=== PATIENT | male | born 1980 | race American Indian/Alaskan Native ===

== ENCOUNTER 2019-09-25 18:25 | Emergency (ER) | payer OTHER ==
[2019-09-25] MEDS ORDERED: GI Cocktail Oral Solution 30 ML PO ONE (18:50)
--- NOTE | 2019-09-25 18:50 | EDM.PDOC ---
ED [facility] GENERAL MEDICAL PROBLEM - General Chief Complaint: Chest Pain Stated Complaint: CHEST PAIN Time Seen by Provider: 09/25/19 18:42 Source of Information: Reports: Patient History Limitations: Reports: No Limitations - History of Present Illness INITIAL COMMENTS - FREE TEXT/NARRATIVE: patient comes emergency department today with complaints of left anterior chest pain. Approximately 30 minutes prior to arrival the patient had sudden onset of sharp shooting stabbing pain on his left anterior chest. Pain comes and goes on its own. It gets worse with movement and deep breath or cough. He has had no cough. No shortness of breath or difficulty breathing. No fever no chills. No diaphoresis. No paresthesias. No weakness dizziness lightheadedness. Palpitations. No nausea no vomiting. No abdominal pain. No pain in his back. Later during the HPI he tells me that he has been having these pains on and off for the past few weeks to months primarily after he gets up from bed. Chest Pain Score (Numeric/FACES): 7 - Related Data Allergies Allergy/AdvReac Type Severity Reaction Status Date / Time sumatriptan [From Imitrex] Allergy Anxiety Verified 09/25/19 18:33 Home Meds: Home Meds Cholecalciferol (Vitamin D3) [Vitamin D] 1,000 unit PO DAILY 09/25/19 [History] Lisinopril [Zestril] 10 mg PO DAILY 09/25/19 [History] atorvaSTATin [Lipitor] 20 mg PO BEDTIME 09/25/19 [History] Past Medical History HEENT History: Reports: None Cardiovascular History: Reports: Hypertension Respiratory History: Reports: Sleep Apnea Other Respiratory History: has c-pap Genitourinary History: Reports: None Musculoskeletal History: Reports: Arthritis Neurological History: Reports: None Psychiatric History: Reports: None Endocrine/Metabolic History: Reports: Obesity/BMI 30+ Hematologic History: Reports: None Immunologic History: Reports: None Oncologic (Cancer) History: Reports: None Dermatologic History: Reports: None - Infectious Disease History Infectious Disease History: Reports: Chicken Pox - Past Surgical History Head Surgeries/Procedures: Reports: None GI Surgical History: Reports: Appendectomy, Cholecystectomy Social & Family History - Tobacco Use Smoking Status *Q: Former Smoker Years of Tobacco use: 10 Packs/Tins Daily: 1 Used Tobacco, but Quit: Yes Month/Year Tobacco Last Used: august Second Hand Smoke Exposure: No - Caffeine Use Caffeine Use: Reports: Soda - Recreational Drug Use Recreational Drug Use: No ED ROS GENERAL - Review of Systems Review Of Systems: Comprehensive ROS is negative, except as noted in HPI. ED EXAM, GENERAL - Physical Exam Exam: See Below Exam Limited By: No Limitations General Appearance: Alert, WD/WN, No Apparent Distress Eye Exam: Bilateral Eye: EOMI Neck: Normal Inspection, Supple, Non-Tender Respiratory/Chest: No Respiratory Distress, Lungs Clear, Normal Breath Sounds, No Accessory Muscle Use Cardiovascular: Normal Peripheral Pulses, Regular Rate, Rhythm GI/Abdominal: Normal Bowel Sounds, Soft, Non-Tender Back Exam: Normal Inspection, Full Range of Motion Extremities: Normal Inspection, Normal Range of Motion, Non-Tender, Normal Capillary Refill Neurological: Alert, Oriented, CN II-XII Intact, No Motor/Sensory Deficits Psychiatric: Normal Affect, Normal Mood Skin Exam: Warm, Dry, Intact, Normal Color EKG INTERPRETATION EKG Date: 09/25/19 Time: 18:31 Rhythm: NSR Rate (Beats/Min): 71 [place]: Normal P-Wave: Present QRS: Normal ST-T: Normal QT: Normal Comparison: NA - No Prior EKG Course - Vital Signs Last Recorded V/S: Last Vital Signs Temp 37.2 C 09/25/19 18:29 Pulse 70 09/25/19 18:29 Resp 16 09/25/19 18:29 BP 128/86 09/25/19 18:29 Pulse Ox 98 09/25/19 18:29 - Orders/Labs/Meds Orders: Active Orders 24 hr Category Date Time Status EKG 12 Lead [EKG Documentation Completion] [RC] URGENT Care 09/25/19 18:50 Active Labs: Laboratory Tests 09/25/19 09/25/19 Range/Units 18:57 18:57 WBC 8.3 (5.0-10.0) 10^3/uL RBC 5.26 (4.6-6.2) 10^6/uL Hgb 16.1 (14.0-18.0) g/dL Hct 47.5 (40.0-54.0) % MCV 90.3 (80-100) fL MCH 30.6 (27.0-34.0) pg MCHC 33.9 (33.0-35.0) g/dL Plt Count 327 D (150-450) 10^3/uL Neut % (Auto) 62.4 (42.2-75.2) % Lymph % (Auto) 25.8 (20.5-50.1) % [place] % (Auto) 8.9 H (2-8) % Eos % (Auto) 2.4 (1.0-3.0) % Baso % (Auto) 0.5 (0.0-1.0) % Sodium 135 (135-145) mmol/L Potassium 4.7 (3.6-5.0) mmol/L Chloride 103 (101-111) mmol/L Carbon Dioxide 25.0 (21.0-31.0) mmol/L Anion Gap 11.7 BUN 14 (7-18) mg/dL Creatinine 1.0 (0.6-1.3) mg/dL Est Cr Clr Drug Dosing 92.16 mL/min Estimated GFR (MDRD) > 60 BUN/Creatinine Ratio 14.00 Glucose 91 (74-105) mg/dL Calcium 9.1 (8.4-10.2) mg/dl Total Bilirubin 1.0 (0.2-1.0) mg/dL AST 19 (10-42) IU/L ALT 25 (10-60) IU/L Alkaline Phosphatase 71 (42-121) IU/L Troponin I < 0.02 (0.00-0.02) ng/ml Total Protein 7.1 (6.7-8.2) g/dl Albumin 4.3 (3.2-5.5) g/dl Globulin 2.8 Albumin/Globulin Ratio 1.54 Meds: Medications Discontinued Medications Generic Name Dose Route Start Last Admin Trade Name Freq PRN Reason Stop Dose Admin Al Hydroxide/Mg Hydroxide 30 ml 09/25/19 18:50 09/25/19 19:00 Gi Cocktail PO 09/25/19 18:51 30 ml ONETIME ONE Administration - Re-Assessments/Exams Free Text/Narrative Re-Assessment/Exam: 09/25/19 19:41 patient was given a GI cocktail he had no recurrence of his symptoms while in the emergency department. He really feels that this is more from his neck. He has been struggling with his neck for the past month and a half or so. The pain radiates from his left anterior chest up his left neck. Seen physical therapy for his back and his hips. I relate his normal EKG as well as laboratory evaluation this is really not the presentation of cardiac chest pain this more musculoskeletal or mechanical type pain. We will use symptomatic management at this time and continue with his physical therapy and focus on his neck he is comfortable with this plan and his questions are answered. Departure - Departure Time of Disposition: 19:38 Disposition: Home, Self-Care 01 Clinical Impression: Chest pain, musculoskeletal, Neck pain on left side Instructions: Nonspecific Chest Pain, [id number] Forms: ED Department Discharge Additional Instructions: Tylenol and or Ibuprofen as needed for pain. Heat or Ice which every works best for you. Continue with your physical therapy and tell them about your neck and have them help with that as well. Return to the ED if new or worsening symptoms. Follow up with PCP in the next 4-6 days if not improving sooner if worse. Sepsis Event Note - Evaluation Sepsis Screening Result: No Definite Risk - Focused Exam Vital Signs: Vital Signs Temp Pulse Resp BP Pulse Ox 09/25/19 18:29 37.2 C 70 16 128/86 98 Date Exam was Performed: 09/25/19 Time Exam was Performed: 19:37 - My Orders Last 24 Hours: My Active Orders 09/25/19 18:50 EKG 12 Lead [EKG Documentation Completion] [RC] URGENT - Assessment/Plan Last 24 Hours: My Active Orders 09/25/19 18:50 EKG 12 Lead [EKG Documentation Completion] [RC] URGENT Assessment:: Musculoskeletal chest pain. Subacute neck pain. Plan: Tylenol and or Ibuprofen as needed for pain. Heat or Ice which every works best for you. Continue with your physical therapy and tell them about your neck and have them help with that as well. Return to the ED if new or worsening symptoms. Follow up with PCP in the next 4-6 days if not improving sooner if worse.
[2019-09-25 19:23] LABS: ANION GAP 11.7; CHLORIDE,CL 103 mmol/L (101-111); SODIUM,NA 135 mmol/L (135-145)
== END 2019-09-25 19:45 | disposition home or self-care (01) ==
LOC: DL.ED 18:25
DX: R07.89 Other chest pain (principal); M54.2 Cervicalgia; I10 Essential (primary) hypertension; E66.9 Obesity, unspecified; Z88.8 Allergy status to other drugs, medicaments and biological substances; Z79.899 Other long term (current) drug therapy; Z87.891 Personal history of nicotine dependence
CPT/HCPCS: 36415; 80053; 84484; 85025; 93005; 99285; A9270

== ENCOUNTER 2022-07-04 16:31 | Emergency (ER) | payer BC, OTHER ==
[~2022-07-04 16:31] MED LIST: Metoclopramide 10 MG/2 ML SDV IVPUSH ONE; Sodium Chloride 0.9% 1,000 ML IV ONE
[2022-07-04] MEDS ORDERED: Ondansetron 4 MG Tab.DIS PO ONE (16:32)
[2022-07-04 16:55] LABS: ANION GAP 18.9 mEq/L (7-13); CHLORIDE,CL 97 mmol/L (98-107); SODIUM,NA 132 mmol/L (136-145)
[2022-07-04 16:56] LABS: ESTIMATED GFR 70 mL/min (>=60)
[2022-07-04] MEDS ORDERED: Potassium Chloride 20 MEQ in Premix Bag 1 BAG IV ONE ×2 (17:17→19:17)
[2022-07-04] MEDS ORDERED: Sodium Chloride 0.9% 1,000 ML IV ONE (17:17)
[2022-07-04] MEDS ORDERED: LORazepam 2 MG/ML SDV IVPUSH ONE ×2 (17:22→19:45)
[2022-07-04 19:03] LABS: AMPHETAMINES,URINE NEGATIVE (NEGATIVE); BARBITURATES,URINE NEGATIVE (NEGATIVE); BENZODIAZEPINE,URINE NEGATIVE (NEGATIVE); MDMA (ECSTASY), URINE NEGATIVE (NEGATIVE); METHADONE,URINE NEGATIVE (NEGATIVE); METHAMPHETAMINES,URINE NEGATIVE (NEGATIVE); OPIATES,URINE NEGATIVE (NEGATIVE); OXYCODONE,URINE NEGATIVE (NEGATIVE); PHENCYCLIDINE,URINE NEGATIVE (NEGATIVE); TCA,URINE NEGATIVE (NEGATIVE)
[2022-07-04] MEDS ORDERED: Ondansetron 4 MG Tab.DIS ONE (21:28)
== END 2022-07-04 21:25 | disposition home or self-care (01) ==
LOC: DL.ED 16:31
DX: E87.6 Hypokalemia (principal); R11.2 Nausea with vomiting, unspecified; F12.90 Cannabis use, unspecified, uncomplicated; I10 Essential (primary) hypertension; M19.90 Unspecified osteoarthritis, unspecified site; E66.9 Obesity, unspecified; Z68.42 Body mass index [BMI] 45.0-49.9, adult; Z88.8 Allergy status to other drugs, medicaments and biological substances; Z79.899 Other long term (current) drug therapy; E78.5 Hyperlipidemia, unspecified
CPT/HCPCS: 36415; 80053; 80305; 80307; 81003; 82150; 83605; 83690; 83735; 84145; 84484; 85025; 93005; 96361; 96365; 96366; 96375; 99284; A9270; J2060; J2765; J3480; J7030

== ENCOUNTER 2023-03-22 14:38 | Emergency (ER) | payer BC, OTHER ==
[2023-03-22] MEDS ORDERED: Metoclopramide 10 MG/2 ML SDV IVPUSH ONE (15:00)
[2023-03-22] MEDS ORDERED: Sodium Chloride 0.9% 1,000 ML IV ONE (15:04)
[2023-03-22 15:24] LABS: HEMATOCRIT 50.9 % (40.0-54.0); HEMOGLOBIN 17.8 g/dL (14.0-18.0); MEAN CORPUSCULAR HEMOGLOBIN 29.9 pg (27.0-34.0); MEAN CORPUSCULAR VOLUME 85.5 fL (80-100); PLATELET COUNT,PLT 421 10^3/uL (150-450); RED BLOOD CELL COUNT 5.95 10^6/uL (4.6-6.2); WHITE BLOOD CELL COUNT,WBC 19.4 10^3/uL (5.0-10.0)
[2023-03-22 15:35] LABS: A/G RATIO 1.2; ALBUMIN 4.2 g/dL (3.4-5.0); ANION GAP 17.5 mEq/L (7-13); BILIRUBIN TOTAL 0.7 mg/dL (0.2-1.0); BUN/CREATININE RATIO 7.7 (No establ ref range); CALCIUM 9.3 mg/dL (8.5-10.1); CREATININE 1.42 mg/dL (0.70-1.30); EST CRCL DRUG DOSING (CG) 64.65 mL/min; POTASSIUM,K 3.5 mmol/L (3.5-5.1); PROTEIN TOTAL,TP 7.8 g/dL (6.4-8.2)
[2023-03-22 15:57] LABS: BASOPHILS PERCENT AUTO 0.3 % (0.0-1.0); EOSINOPHILS PERCENT AUTO 1.5 % (1.0-3.0); LYMPHOCYTES PERCENT AUTO 12.1 % (20.5-50.1); NEUTROPHILS PERCENT AUTO 79.1 % (42.2-75.2)
[2023-03-22 15:59] LABS: LYMPHOCYTES % ATYPICAL MANUAL 2 %; LYMPHOCYTES PERCENT MAN 15 % (20-50); MONOCYTES PERCENT MAN 4 % (2-8); SEG NEUTROPHILS PERCENT MAN 79 % (42-75)
[2023-03-22] MEDS ORDERED: Ondansetron 4 MG/2 ML SDV IVPUSH ONE (16:26)
[2023-03-22 16:36] LABS: C-REACTIVE PROTEIN < 0.2 mg/dL (0.0-0.9); ETHANOL BLOOD MEDICAL < 3 mg/dL (0)
[2023-03-22 17:08] LABS: LACTIC ACID 2.1 mmol/L (0.4-2.0)
== END 2023-03-22 18:00 | disposition home or self-care (01) ==
LOC: DL.ED 14:38
DX: R11.2 Nausea with vomiting, unspecified (principal); I10 Essential (primary) hypertension; E66.9 Obesity, unspecified; Z68.41 Body mass index [BMI] 40.0-44.9, adult; Z88.8 Allergy status to other drugs, medicaments and biological substances
CPT/HCPCS: 36415; 80053; 80307; 83605; 85025; 86140; 96361; 96374; 96375; 99284; J2405; J2765; J7030

== ENCOUNTER 2024-01-17 20:09 | Emergency (ER) | payer MEDICAID, OTHER ==
[2024-01-17] MEDS: Ketorolac 30 MG/ML SDV IM ONE (21:02)
[2024-01-17] MEDS: predniSONE 20 MG Tab PO ONE (21:02)
== END 2024-01-17 21:22 | disposition home or self-care (01) ==
LOC: DL.ED 20:09
DX: M79.7 Fibromyalgia (principal); I10 Essential (primary) hypertension; E66.9 Obesity, unspecified; Z90.49 Acquired absence of other specified parts of digestive tract; Z79.899 Other long term (current) drug therapy; Z88.8 Allergy status to other drugs, medicaments and biological substances; Z68.42 Body mass index [BMI] 45.0-49.9, adult
CPT/HCPCS: 96372; 99283; J1885; J7512

== ENCOUNTER 2024-12-11 08:59 | Emergency (ER) | payer MEDICAID ==
[2024-12-11 09:36] LABS: BASOPHILS PERCENT AUTO 0.4 % (0.0-1.0); EOSINOPHILS PERCENT AUTO 2.1 % (1.0-3.0); HEMATOCRIT 47.8 % (40.0-54.0); HEMOGLOBIN 16.6 g/dL (14.0-18.0); LYMPHOCYTES PERCENT AUTO 15.2 % (20.5-50.1); MEAN CORPUSCULAR HEMOGLOBIN 30.6 pg (27.0-34.0); MEAN CORPUSCULAR HGB CONC 34.7 g/dL (33.0-35.0); MONOCYTES PERCENT AUTO 5.9 % (2-8); NEUTROPHILS PERCENT AUTO 76.4 % (42.2-75.2); PLATELET COUNT,PLT 399 10^3/uL (150-450); RED BLOOD CELL COUNT 5.43 10^6/uL (4.6-6.2); WHITE BLOOD CELL COUNT,WBC 14.6 10^3/uL (5.0-10.0)
[2024-12-11] MEDS: Haloperidol Lactate 5 MG/ML SDV IVPUSH ONE (09:48)
[2024-12-11] MEDS: Sodium Chloride 0.9% 10 ML Syringe FLUSH PRN (09:49)
[2024-12-11] MEDS: Sodium Chloride 0.9% 1,000 ML IV ONE (09:49)
[2024-12-11 10:00] LABS: A/G RATIO 1.1; ALANINE AMINOTRANSFERASE,ALT 27 U/L (16-63); ALBUMIN 3.9 g/dL (3.4-5.0); ALKALINE PHOSPHATASE 101 U/L (46-116); ANION GAP 17.4 mEq/L (7-13); ASPARTATE AMNIOTRANSFERASE,AST 14 U/L (15-37); BILIRUBIN TOTAL 0.5 mg/dL (0.2-1.0); BLOOD UREA NITROGEN,BUN 12 mg/dL (7-18); BUN/CREATININE RATIO 10.2 (No establ ref range); CALCIUM 9.4 mg/dL (8.5-10.1); CARBON DIOXIDE,CO2 22 mmol/L (21-32); CHLORIDE,CL 104 mmol/L (98-107); CREATININE 1.18 mg/dL (0.70-1.30); GLUCOSE RANDOM 160 mg/dL (70-99); MAGNESIUM 1.8 mg/dL (1.8-2.4); POTASSIUM,K 4.4 mmol/L (3.5-5.1); PROTEIN TOTAL,TP 7.6 g/dL (6.4-8.2); SODIUM,NA 139 mmol/L (136-145)
[2024-12-11 10:01] LABS: ESTIMATED GFR 80 mL/min (>=60)
== END 2024-12-11 10:50 | disposition home or self-care (01) ==
LOC: DL.ED 08:59
DX: F12.120 Cannabis abuse with intoxication, uncomplicated (principal); I10 Essential (primary) hypertension; E66.9 Obesity, unspecified; Z88.8 Allergy status to other drugs, medicaments and biological substances; Z79.899 Other long term (current) drug therapy; Z90.49 Acquired absence of other specified parts of digestive tract; Z68.42 Body mass index [BMI] 45.0-49.9, adult
CPT/HCPCS: 36415; 80053; 83735; 84484; 85025; 93005; 96361; 96374; 99284; J1630; J7030; 99283